=== PATIENT | female | born 1970 | race Caucasian/White ===

== ENCOUNTER → 2019-04-19 | Outpatient (REF) | payer BC ==
[~2019-04-19] MED LIST: CETI10CA2 PO; MOBI15TA PO; MONT10TA2 PO; PLAQ200T4 PO; REST15CA PO; SYNT50TA PO
[2019-04-19 13:19] LABS: HEMATOCRIT 44.3 % (36.0-47.0); HEMOGLOBIN 14.4 g/dl (12.0-15.5); MEAN CORPUSCULAR HGB CONC 32.5 g/dl (32.0-36.5); MEAN CORPUSCULAR VOLUME 89.3 fl (80.0-96.0); PLATELET COUNT, AUTOMATED 333 10^3/uL (150-450); RED BLOOD COUNT 4.96 10^6/uL (4.00-5.40); WHITE BLOOD COUNT 9.4 10^3/uL (4.0-10.0)
[2019-04-19 13:51] LABS: ERYTHROCYTE SEDIMENTATION RATE 12 mm/hr (0-20)
[2019-04-19 14:07] LABS: ALT/SGPT 19 U/L (12-78); BILIRUBIN,TOTAL 0.6 MG/DL (0.2-1.0); BLOOD UREA NITROGEN 12 MG/DL (7-18); CALCIUM LEVEL 9.2 MG/DL (8.5-10.1); CARBON DIOXIDE LEVEL 26 MEQ/L (21-32); CHLORIDE LEVEL 107 MEQ/L (98-107); CHOLESTEROL LEVEL 153 MG/DL (<200); CHOLESTEROL RISK RATIO 3.255 (<5); CREATININE FOR GFR 0.77 MG/DL (0.55-1.30); FOLATE > 24.0 NG/ML; GLOMERULAR FILTRATION RATE > 60.0 (>58); GLUCOSE, FASTING 71 MG/DL (70-100); HDL CHOLESTEROL 47 MG/DL (>40); LDL CHOLESTEROL 93 MG/DL (<100); NON-HDL-C 106 MG/DL; POTASSIUM SERUM 4.2 MEQ/L (3.5-5.1); SODIUM LEVEL 141 MEQ/L (136-145); TOTAL 25(OH) VITAMIN D 53.2 NG/ML (30.0-100.0); TOTAL PROTEIN 7.1 GM/DL (6.4-8.2); TRIGLYCERIDES LEVEL 65 MG/DL (<150); VITAMIN B12 LEVEL 436 PG/ML
== END ==
LOC: M SFHCPLAZ 09:55
PROVIDERS: ATTEND Nurse Practitioner Family
DX: M32.9 Systemic lupus erythematosus, unspecified (principal); E03.9 Hypothyroidism, unspecified; F41.9 Anxiety disorder, unspecified; R20.2 Paresthesia of skin

== ENCOUNTER 2019-04-23 12:22 | Inpatient (IN) | payer BC ==
[~2019-04-23] VITALS: Ht 165.1 cm; Wt 103.4 kg
[2019-04-23 13:14] LABS: BASO # 0.1 10^3/uL (0.0-0.2); BASO % 0.6 % (0.0-1.0); EOS # 0.2 10^3/uL (0.0-0.5); EOS % 1.2 % (0.0-3.0); HEMATOCRIT 45.5 % (36.0-47.0); HEMOGLOBIN 14.6 g/dl (12.0-15.5); LYMPH # 3.4 10^3/uL (1.5-5.0); LYMPH % 26.2 % (24.0-44.0); MEAN CORPUSCULAR HEMOGLOBIN 28.6 pg (27.0-33.0); MEAN CORPUSCULAR HGB CONC 32.1 g/dl (32.0-36.5); MONO # 0.8 10^3/uL (0.0-0.8); NEUTROPHILS # 8.4 10^3/uL (1.5-8.5); NEUTROPHILS % 65.7 % (36.0-66.0); PLATELET COUNT, AUTOMATED 332 10^3/uL (150-450); RED BLOOD COUNT 5.11 10^6/uL (4.00-5.40); WHITE BLOOD COUNT 12.8 10^3/uL (4.0-10.0)
[2019-04-23 13:40] LABS: BLOOD UREA NITROGEN 11 MG/DL (7-18); CALCIUM LEVEL 9.3 MG/DL (8.5-10.1); CARBON DIOXIDE LEVEL 28 MEQ/L (21-32); CHLORIDE LEVEL 108 MEQ/L (98-107); CK-MB VALUE MASS < 1.0 NG/ML (<3.6); CPK CREATINE PHOSPHOKINASE 53 U/L (26-192); CREATININE FOR GFR 0.78 MG/DL (0.55-1.30); FREE T4 0.96 NG/DL (0.76-1.46); GLOMERULAR FILTRATION RATE > 60.0 (>58); GLUCOSE, FASTING 69 MG/DL (70-100); MAGNESIUM LEVEL 2.2 MG/DL (1.8-2.4); MB/CK RELATIVE INDEX 1.89 (< OR =4); PHOSPHORUS LEVEL 3.7 MG/DL (2.5-4.9); POTASSIUM SERUM 3.7 MEQ/L (3.5-5.1); SODIUM LEVEL 142 MEQ/L (136-145); TROPONIN I < 0.02 NG/ML (< 0.10)
[2019-04-23] MEDS ORDERED: REST15CA PO (13:44)
[2019-04-23] MEDS ORDERED: MONT10TA2 PO (13:44)
[2019-04-23] MEDS ORDERED: CETI10CA2 PO (13:44)
[2019-04-23] MEDS ORDERED: PLAQ200T4 PO (13:44)
[2019-04-23] MEDS ORDERED: SYNT50TA PO (13:44)
[2019-04-23] MEDS ORDERED: MOBI15TA PO (13:44)
[2019-04-23] MEDS ORDERED: ISOVUE-370 76% 100ML VIAL (Q9967) As Ordered ONE (14:01)
--- NOTE | 2019-04-23 15:26 | REP ---
CT PULMONARY ANGIOGRAM: WITH IV CONTRAST. HISTORY: Shortness of breath and syncope. COMPARISON STUDIES: No comparison study. CONTRAST DOSE: 100 mL of Isovue [address] TECHNIQUE: Helical scanning is acquired and overlapping 1.5 mm and contiguous 3 mm axial images are reformatted. In addition, maximum intensity projection and multiplanar re-formation images are generated in sagittal and coronal imaging projections. CT PULMONARY ANGIOGRAPHIC FINDINGS: There is good opacification of the pulmonary arterial tree. There is no filling defect or vessel cutoff to suggest pulmonary embolism. Thoracic aorta shows no evidence of aneurysm or dissection. There is no evidence of hilar or mediastinal mass or adenopathy. No pleural or pericardial effusion is seen. There are clips in the gallbladder post cholecystectomy. Normal adrenals are seen. The visualized upper abdominal structures are otherwise unremarkable. There is platelike atelectasis in the left lower lobe laterally. The lung fu are otherwise free of infiltrate or atelectasis. There is a granulomatous calcification in the right upper lobe. There are granulomatous calcified lymph node residuals in the right paratracheal region of the mediastinum. No significant pulmonary nodule is seen. Bone window settings show no bony destructive lesion. IMPRESSION: No CT evidence of pulmonary embolus. No acute abnormality. Old granulomatous calcific residuals. Electronically Signed by Goran Naidu MD 04/23/2019 06:57 P
[2019-04-23 15:48] LABS: HCG, SERUM QUANTITATIVE < 1.0 MIU/ML; LDH LACTATE DEHYDROGENASE 194 U/L (84-246)
[2019-04-23 15:55] VITALS: BP_SYST 134; BP_SYST 137; BP_SYST 140; BP_DIAS 69; BP_DIAS 75; BP_DIAS 76
--- NOTE | 2019-04-23 16:27 | REP ---
CT abdomen and pelvis with IV but without oral contrast: History: Left-sided abdomen pain. Syncope. CT contrast dose: 100 ml of intravenous Isovue 370. No comparison study. CT findings: Preliminary digital saw setter radiograph shows an unremarkable bowel gas pattern. The liver and the spleen are normal in size homogeneous in texture. No adrenal lesion is seen. No abnormalities noted in the pancreas. Gallbladder surgically absent. The kidneys enhance symmetrically and are morphologically intact. No hydronephrosis is seen. No retroperitoneal mass or adenopathy is seen. The appendix is surgically absent. Urinary bladder is unremarkable. The uterus is surgically absent. However, there is a septated large cyst eight L abdominal mass with its epicenter to the left of midline consistent with a left ovarian cystic lesion. The overall dimensions of this large lesion are 17 cm in oblique anteroposterior dimension by 10.6 cm by 11.0 cm. There is a thick-walled septation visible with some nodularity. A nodular component measuring 2.9 x 1.6 cm by 3.1 cm is seen. There is no evidence of ascites or adenopathy. The right ovary is not seen. There is no evidence of right adnexal mass. Impression: Large cystic lesion in the left pelvis with thick-walled nodular septations consistent with an ovarian cystic neoplasm. No ascites or adenopathy is seen. The elbow abdominal cystic mass measures 17 biopsy 11 x 10.6 cm. The patient is status post hysterectomy, appendectomy, and cholecystectomy. Electronically Signed by Goran Naidu MD 04/23/2019 06:57 P
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
[2019-04-23] MEDS ORDERED: TEMAZEPAM 15 MG CAP PO PRN (18:30)
--- NOTE | 2019-04-23 19:56 | ECGEPIP ---
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
[2019-04-23 20:00] VITALS: BP_SYST 119; BP_SYST 121; BP_SYST 122; BP_SYST 142; BP_DIAS 61; BP_DIAS 65; BP_DIAS 66; BP_DIAS 71
[2019-04-23 23:30] LABS: URINE PREG TEST NEGATIVE (NEGATIVE)
[2019-04-23 23:45] LABS: AMPHETAMINES LEVEL URINE NEGATIVE (NEGATIVE); BARBITURATES URINE NEGATIVE (NEGATIVE); BENZODIAZEPINES URINE NEGATIVE (NEGATIVE); CANNABINOIDS URINE NEGATIVE (NEGATIVE); COCAINE METABOLITE URINE NEGATIVE (NEGATIVE); METHADONE URINE NEGATIVE (NEGATIVE); OPIATES URINE NEGATIVE (NEGATIVE); PHENCYCLIDINE URINE NEGATIVE (NEGATIVE)
[2019-04-24] VITALS: BP 131/74
[2019-04-24 04:00] VITALS: BP 144/86
[2019-04-24] MEDS ORDERED: LEVOTHYROXINE 50MCG TABLET (0.05MG) PO SCH (06:00)
[2019-04-24 06:48] LABS: HEMOGLOBIN 13.5 g/dl (12.0-15.5); MEAN CORPUSCULAR HEMOGLOBIN 28.7 pg (27.0-33.0); MEAN CORPUSCULAR HGB CONC 32.1 g/dl (32.0-36.5); MEAN CORPUSCULAR VOLUME 89.2 fl (80.0-96.0); PLATELET COUNT, AUTOMATED 293 10^3/uL (150-450); RED BLOOD COUNT 4.71 10^6/uL (4.00-5.40); WHITE BLOOD COUNT 9.6 10^3/uL (4.0-10.0)
[2019-04-24 07:20] LABS: BLOOD UREA NITROGEN 14 MG/DL (7-18); CARBON DIOXIDE LEVEL 25 MEQ/L (21-32); CHLORIDE LEVEL 108 MEQ/L (98-107); CREATININE FOR GFR 0.72 MG/DL (0.55-1.30); GLOMERULAR FILTRATION RATE > 60.0 (>58); GLUCOSE, FASTING 91 MG/DL (70-100); MAGNESIUM LEVEL 2.1 MG/DL (1.8-2.4); POTASSIUM SERUM 3.6 MEQ/L (3.5-5.1); SODIUM LEVEL 139 MEQ/L (136-145)
[2019-04-24 08:00] VITALS: BP 120/68
--- NOTE | 2019-04-24 08:01 | REP ---
Pelvic sonography: History: Ovarian cyst. Comparison CT study April 23, 2019 showed a large palpable abdominal cystic lesion just to the left of midline. The patient reports previous history of bilateral oophorectomy. Findings: Uterus is surgically absent. No right ovary could be seen. No free fluid is noted. There is a complex large pelvic cystic lesion located just to the left of midline in the pelvis. This measures 19.3 x 10.9 x 14.5 cm in overall dimension sonographically. There is hypoechoic fluid within it. It is a septated with one thickened septation and one thin septation. A daughter cyst is seen along one of the septations. Doppler flow could not be observed. No free cul-de-sac fluid is seen. Impression: 19.3 x 10.9 x 14.5 cm septated complex pelvic mass just to the left of midline. Thick septations. Neoplasm not excluded. Electronically Signed by Goran Naidu MD 04/24/2019 08:52 A
[2019-04-24] MEDS ORDERED: ALPRAZolam 0.25 MG TAB PO ONE ×2 (08:45→12:15)
[2019-04-24] MEDS ORDERED: NS 1,000 ML IV SCH (08:45)
[2019-04-24] MEDS ORDERED: MELOXICAM (MOBIC) 7.5 MG TAB PO SCH (09:00)
[2019-04-24] MEDS ORDERED: MONTELUKAST 10 MG TAB PO SCH (09:00)
[2019-04-24] MEDS ORDERED: HYDROXYCHLOROQUINE 200 MG TAB PO SCH (09:00)
[2019-04-24 12:00] VITALS: BP 114/67
[2019-04-24 12:28] LABS: CA19-9 TUMOR MARKER,CARBOHYDRA < 1.2 U/ML (<35.0)
--- NOTE | 2019-04-24 13:32 | REP ---
INDICATION: Neuro symptoms PROCEDURE: MRI brain without contrast. Axial and sagittal T1 images obtained. T2, FLAIR, diffusion images obtained in axial plane. COMPARISON STUDIES: No prior similar studies FINDINGS: No evidence of restricted diffusion to suggest acute infarction. No gradient-echo susceptibility to suggest hemorrhage. The ventricles and extra-axial CSF spaces are within normal limits. No mass effect or midline shift. No abnormal fluid collections. Paranasal sinuses and mastoid air cells are clear. CONCLUSION: No acute findings. Normal examination. Electronically Signed by Luke Guo MD 04/24/2019 01:23 P
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
[2019-04-24] MEDS ORDERED: PLAQ200T4 PO (14:20)
[2019-04-24] MEDS ORDERED: REST15CA PO (14:20)
[2019-04-24] MEDS ORDERED: CETI10CA2 PO (14:20)
[2019-04-24] MEDS ORDERED: MOBI15TA PO (14:20)
[2019-04-24] MEDS ORDERED: MONT10TA2 PO (14:20)
[2019-04-24] MEDS ORDERED: SYNT50TA PO (14:20)
[2019-04-26 14:21] LABS: ANTI DS-DNA AB Negative (Negative); RNP ANTIBODY < 0.2 AI (0.0-0.9); SMITHS ANTIBODY < 0.2 AI (0.0-0.9)
[2019-04-27 00:08] LABS: HE4 36.7 pmol/L (0.0-63.6)
[2019-04-27 00:08] LABS: HE4 40.9 pmol/L (0.0-63.6)
== END 2019-04-24 16:04 | disposition home or self-care (01) | DRG 204 ==
LOC: M ED 12:22 → M ED INP 15:05 → ENRESERV 15:10 → M PCU 15:55
PROVIDERS: ADMIT General Practice; ATTEND Internal Medicine
DX: R55 Syncope and collapse (principal); M32.10 Systemic lupus erythematosus, organ or system involvement unspecified; E03.9 Hypothyroidism, unspecified; E66.9 Obesity, unspecified; F41.9 Anxiety disorder, unspecified; G47.00 Insomnia, unspecified; I10 Essential (primary) hypertension; Z79.899 Other long term (current) drug therapy; Z88.5 Allergy status to narcotic agent; Z88.8 Allergy status to other drugs, medicaments and biological substances; Z87.891 Personal history of nicotine dependence; N83.8 Other noninflammatory disorders of ovary, fallopian tube and broad ligament; F32.9 Major depressive disorder, single episode, unspecified

== ENCOUNTER → 2019-05-04 | Outpatient (CLI) | payer BC ==
[~2019-05-04] MED LIST changes: +BIOT1CAP2 PO; +ONDA4TAB6 PO; +PERC5TAB12 PO
--- NOTE | 2019-05-05 08:23 | ECHO ---
DATE OF PROCEDURE: 05/04/2019 Date of : 1970 Age: 48 REFERRING PHYSICIAN: Diamond Ortiz NP PATIENT LOCATION: Outpatient. REASON FOR EXAMINATION: Syncope/prolapse. 2D MEASUREMENTS: IVS: 1.0 cm LV: 3.7 cm LVPW: 1.1 cm LA: 3.5 cm Aorta: 2.6 cm RV: 2.9 cm DOPPLER MEASUREMENTS: Peak velocity across the aortic valve: 1.4 m/s Peak velocity across the LVOT: 0.84 m/s Mitral E: 0.74, Mitral A: 0.51 with a ratio of 1.4 2D COMMENTS: 1. Normal left ventricular size, wall thickness and normal global left ventricular systolic function. The estimated left ventricular systolic ejection fraction is 60-65%. 2. Normal left atrium. Normal right atrium and right ventricle. 3. The atrial septum appeared to be normal without evidence of defect or shunt. 4. Normal aortic root. 5. Trace to small pericardial effusion noted, no evidence of cardiac tamponade. 6. The mitral valve, aortic valve, tricuspid valve, and pulmonic valve appeared to be normal. The proximal pulmonary artery branches also appeared to be normal. 7. The inferior vena cava was not well visualized. DOPPLER: Doppler detects trace mitral regurgitation, trace tricuspid regurgitation. Pulmonary artery systolic pressure is most likely normal. Assessment of the left ventricular diastolic function appeared to be normal. IMPRESSION 1. Normal global left ventricular systolic and diastolic function. 2. Trace mitral regurgitation. 3. Trace tricuspid regurgitation with probably normal pulmonary artery systolic pressure. 4. Trace to small pericardial effusion, no evidence of cardiac tamponade.
== END ==
LOC: M CARPUL 14:43
PROVIDERS: ATTEND Nurse Practitioner Family
DX: I34.0 Nonrheumatic mitral (valve) insufficiency (principal); R55 Syncope and collapse

== ENCOUNTER 2019-05-08 07:58 | Emergency (ER) | payer BC ==
[~2019-05-08] VITALS: Ht 162.6 cm; Wt 102.9 kg
[~2019-05-08 07:58] MED LIST changes: -BIOT1CAP2 PO; -ONDA4TAB6 PO; -PERC5TAB12 PO
[2019-05-08] MEDS ORDERED: BIOT1CAP2 PO (08:05)
[2019-05-08] MEDS ORDERED: ONDANSETRON 4MG/2ML VIAL (J2405) IV ONE ×2 (09:00→12:30)
[2019-05-08] MEDS ORDERED: NS 1,000 ML IV ONE (09:00)
[2019-05-08 09:30] LABS: BASO # 0.1 10^3/uL (0.0-0.2); EOS # 0.1 10^3/uL (0.0-0.5); EOS % 1.1 % (0.0-3.0); HEMATOCRIT 47.2 % (36.0-47.0); HEMOGLOBIN 14.9 g/dl (12.0-15.5); LYMPH # 2.3 10^3/uL (1.5-5.0); LYMPH % 32.6 % (24.0-44.0); MEAN CORPUSCULAR HEMOGLOBIN 28.2 pg (27.0-33.0); MEAN CORPUSCULAR HGB CONC 31.6 g/dl (32.0-36.5); MEAN CORPUSCULAR VOLUME 89.2 fl (80.0-96.0); MONO # 0.5 10^3/uL (0.0-0.8); MONO % 6.9 % (0.0-5.0); NEUTROPHILS # 4.2 10^3/uL (1.5-8.5); NEUTROPHILS % 58.1 % (36.0-66.0); PLATELET COUNT, AUTOMATED 382 10^3/uL (150-450); RED BLOOD COUNT 5.29 10^6/uL (4.00-5.40); WHITE BLOOD COUNT 7.1 10^3/uL (4.0-10.0)
[2019-05-08 09:45] LABS: ALBUMIN 4.2 GM/DL (3.2-5.2); ALT/SGPT 22 U/L (12-78); BILIRUBIN,DIRECT < 0.1 MG/DL (0.0-0.2); BILIRUBIN,TOTAL 0.4 MG/DL (0.2-1.0); LIPASE 136 U/L (73-393); TOTAL PROTEIN 7.9 GM/DL (6.4-8.2)
[2019-05-08] MEDS ORDERED: KETOROLAC 30 MG/ML VIAL (J1885) IV ONE (10:00)
--- NOTE | 2019-05-08 10:18 | REP ---
Pelvic ultrasound for known pelvic mass with increased pain: Comparisons are the abdomen/pelvis CT dated 04/23/2019 and pelvic ultrasound dated 04/23/2019. On the comparison ultrasound. The patient indicates that she had a hysterectomy in 2001 and a bilateral nephrectomy in 2010. Both prior studies there was a large pelvic cyst containing a thick septation and daughter cyst along the septation. On the previous ultrasound the cyst measured 19.3 x 14.5 x 10.9 cm. On the study today this large pelvic cyst is again identified, containing a thick septation. With Doppler assessment there is vascular flow within this septation, the resistive index measuring 0.57. A daughter cyst is again identified along the septation. The cyst today measures 17.5 x 13.7 x 9.4 cm. There is no free fluid in the pelvis. There is no identifiable uterus. There is no identifiable right or left ovary. No free fluid is identified in the pelvis. Impression: There is a large pelvic cyst containing a thickened septation. A daughter cyst is again identified within the septation. With Doppler assessment there is vascular flow within this septation. The findings are consistent with cystic neoplasm. The cyst has not significantly changed in size. Electronically Signed by You Elizabeth MD 05/08/2019 10:11 A
[2019-05-08] MEDS ORDERED: PERCOCET 5MG/325MG TAB PO ONE (10:45)
[2019-05-08] MEDS ORDERED: ONDA4TAB6 PO (12:20)
[2019-05-08] MEDS ORDERED: PERC5TAB12 PO (12:20)
[2019-05-08 12:40] VITALS: BP 124/64
--- NOTE | 2019-05-08 20:15 | ED PDOC ---
Post-Departure Follow-Up carole barnett and dr billings faxed formal report of pelvic us for fu Zhanna Monzon MD May 08, 2019 20:15
== END 2019-05-08 13:04 | disposition home or self-care (01) ==
LOC: M ED 07:58
DX: N94.89 Other specified conditions associated with female genital organs and menstrual cycle (principal); M32.9 Systemic lupus erythematosus, unspecified; E03.9 Hypothyroidism, unspecified; R06.02 Shortness of breath; K59.00 Constipation, unspecified; F17.290 Nicotine dependence, other tobacco product, uncomplicated; Z88.1 Allergy status to other antibiotic agents; Z88.5 Allergy status to narcotic agent; Z88.6 Allergy status to analgesic agent; Z79.890 Hormone replacement therapy; Z79.899 Other long term (current) drug therapy
CPT/HCPCS: 76856; 80047; 80076; 81001; 83690; 85025; 96361; 96374; 96375; 96376; 99284; J1885; J2405

== ENCOUNTER 2019-05-18 06:01 | Inpatient (IN) | payer BC ==
[~2019-05-18] VITALS: Ht 162.6 cm; Wt 103.8 kg
[2019-05-18] VITALS (7 sets, daily range): BP systolic 100–118; BP diastolic 53–64
[~2019-05-18 06:01] MED LIST changes: +BIOT1CAP2 PO; -MONT10TA2 PO; +MONT10TA4 PO; +ONDA4TAB6 PO; +PERC5TAB12 PO
[2019-05-18 06:36] LABS: HEMATOCRIT 45.3 % (36.0-47.0); HEMOGLOBIN 14.3 g/dl (12.0-15.5); MEAN CORPUSCULAR HEMOGLOBIN 28.3 pg (27.0-33.0); MEAN CORPUSCULAR HGB CONC 31.6 g/dl (32.0-36.5); MEAN CORPUSCULAR VOLUME 89.7 fl (80.0-96.0); PLATELET COUNT, AUTOMATED 345 10^3/uL (150-450); RED BLOOD COUNT 5.05 10^6/uL (4.00-5.40)
[2019-05-18] MEDS ORDERED: ceFAZolin SOD 2 GM in IV 1 EA IV ONE (07:00)
[2019-05-18] MEDS ORDERED: LR 1,000 ML IV ONE (07:00)
[2019-05-18 07:02] LABS: BLOOD UREA NITROGEN 12 MG/DL (7-18); CALCIUM LEVEL 9.6 MG/DL (8.5-10.1); CARBON DIOXIDE LEVEL 26 MEQ/L (21-32); CHLORIDE LEVEL 108 MEQ/L (98-107); CREATININE FOR GFR 0.84 MG/DL (0.55-1.30); GLOMERULAR FILTRATION RATE > 60.0 (>58); GLUCOSE, FASTING 103 MG/DL (70-100); POTASSIUM SERUM 3.5 MEQ/L (3.5-5.1); SODIUM LEVEL 140 MEQ/L (136-145)
[2019-05-18] MEDS ORDERED: SCOPOLAMINE 1MG TRANSDERMAL PATCH As Ordered ONE (07:09)
[2019-05-18] MEDS ORDERED: SILVER NITRATE APPLICATOR As Ordered ONE (07:10)
[2019-05-18] MEDS ORDERED: METHYLENE BLUE 0.5% (5MG/ML) 10 ML AMP (PROVAYBLUE)(Q9968 PER 1MG) As Ordered ONE (07:11)
[2019-05-18] MEDS ORDERED: SCOPOLAMINE 1MG TRANSDERMAL PATCH TOP ONE (07:30)
[2019-05-18] MEDS ORDERED: LIDOCAINE 2% INJ 100 MG/5 ML SDV (FOR ANES.) As Ordered ONE (08:05)
[2019-05-18] MEDS ORDERED: propofoL 200 MG/20 ML VIAL As Ordered ONE (08:05)
[2019-05-18] MEDS ORDERED: MIDAZOLAM INJ 2 MG/2 ML VIAL (J2250) As Ordered ONE (08:05)
[2019-05-18] MEDS ORDERED: HYDROmorphone HCL 2 MG/ML 1ML VIAL (J1170) As Ordered ONE (08:05)
[2019-05-18] MEDS ORDERED: dexameTHASONE 4 MG/ML 1ML VIAL (J1100) As Ordered ONE (08:05)
[2019-05-18] MEDS ORDERED: fentaNYL 100 MCG/2 ML INJECTION (J3010) As Ordered ONE (08:05)
[2019-05-18] MEDS ORDERED: ROCURONIUM BROMIDE 50 MG/5 ML VIAL As Ordered ONE (08:05)
[2019-05-18] MEDS ORDERED: BUPIVACAINE LIPOSOME/PF 1.3% 20ML VIAL (13.3MG/ML)(EXPAREL)(C9290 PER1MG) As Ordered ONE (08:21)
[2019-05-18] MEDS ORDERED: SUGAMMADEX SODIUM 500 MG/5 ML VIAL (BRIDION) As Ordered ONE (08:26)
[2019-05-18] MEDS ORDERED: ONDANSETRON 4MG/2ML VIAL (J2405) As Ordered ONE (08:26)
[2019-05-18] MEDS ORDERED: KETOROLAC 60 MG/2 ML VIAL (J1885) As Ordered ONE (08:26)
[2019-05-18] MEDS ORDERED: ePHEDrine SULFATE 25 MG/5 ML(5MG/ML) SYRINGE As Ordered ONE (08:58)
[2019-05-18] MEDS: LR 1,000 ML IV SCH ×2 (11:00→18:13)
[2019-05-18] MEDS ORDERED: ONDANSETRON 4 MG ORAL DISINTEGRATING TAB (Q0162 PER 1MG) PO PRN (11:00)
[2019-05-18] MEDS ORDERED: HYDROmorphone 2 MG TAB PO PRN (11:00)
[2019-05-18] MEDS ORDERED: TEMAZEPAM 15 MG CAP PO PRN (11:00)
[2019-05-18] MEDS ORDERED: PERCOCET 5MG/325MG TAB PO PRN ×2 (11:00→11:15)
[2019-05-18] MEDS ORDERED: ONDANSETRON 4MG/2ML VIAL (J2405) IV PRN (11:15)
[2019-05-18] MEDS ORDERED: LR 1,000 ML IV SCH (11:15)
[2019-05-18] MEDS ORDERED: fentaNYL 100 MCG/2 ML INJECTION (J3010) IV PRN (11:15)
[2019-05-18] MEDS: ONDANSETRON 4 MG ORAL DISINTEGRATING TAB (Q0162 PER 1MG) PO PRN ×2 (13:16→18:58)
[2019-05-18] MEDS: PERCOCET 5MG/325MG TAB PO PRN ×2 (13:17→18:59)
[2019-05-18] MEDS ORDERED: HYDROMORPHONE HCL 0.5 MG/ 0.5 ML SYRINGE (J1170 PER 1) IV PRN (13:45)
[2019-05-18] MEDS: KETOROLAC 30 MG/ML VIAL (J1885) IV SCH ×2 (15:05→21:59)
[2019-05-18] MEDS: DOCUSATE SODIUM 100 MG CAP PO SCH (21:58)
[2019-05-18] MEDS: ENOXAPARIN 40 MG/0.4 ML SYRINGE (J1650) SC SCH (21:59)
[2019-05-19] VITALS (7 sets, daily range): BP systolic 90–120; BP diastolic 50–80
[2019-05-19] MEDS: LR 1,000 ML IV SCH ×3 (02:19→17:53)
[2019-05-19] MEDS: PERCOCET 5MG/325MG TAB PO PRN ×4 (02:19→21:20)
[2019-05-19] MEDS: ONDANSETRON 4 MG ORAL DISINTEGRATING TAB (Q0162 PER 1MG) PO PRN ×4 (02:21→21:19)
[2019-05-19] MEDS: KETOROLAC 30 MG/ML VIAL (J1885) IV SCH ×2 (03:00→08:36)
[2019-05-19] MEDS: LEVOTHYROXINE 50MCG TABLET (0.05MG) PO SCH (05:53)
[2019-05-19 07:18] LABS: BASO % 0.1 % (0.0-1.0); EOS % 0.1 % (0.0-3.0); HEMATOCRIT 36.2 % (36.0-47.0); LYMPH % 11.4 % (24.0-44.0); MEAN CORPUSCULAR HEMOGLOBIN 28.5 pg (27.0-33.0); MEAN CORPUSCULAR HGB CONC 31.2 g/dl (32.0-36.5); MEAN CORPUSCULAR VOLUME 91.4 fl (80.0-96.0); MONO # 1.9 10^3/uL (0.0-0.8); MONO % 10.5 % (0.0-5.0); NEUTROPHILS # 13.8 10^3/uL (1.5-8.5); NEUTROPHILS % 77.2 % (36.0-66.0); PLATELET COUNT, AUTOMATED 288 10^3/uL (150-450); RED BLOOD COUNT 3.96 10^6/uL (4.00-5.40); WHITE BLOOD COUNT 17.8 10^3/uL (4.0-10.0)
[2019-05-19 07:31] LABS: HEMOGLOBIN 11.3 g/dl (12.0-15.5)
[2019-05-19] MEDS: HYDROXYCHLOROQUINE 200 MG TAB PO SCH (08:36)
[2019-05-19] MEDS: DOCUSATE SODIUM 100 MG CAP PO SCH ×2 (08:36→21:19)
[2019-05-19] MEDS: MONTELUKAST 10 MG TAB PO SCH (08:36)
[2019-05-19] MEDS: IBUPROFEN 800 MG TAB PO SCH (17:50)
[2019-05-19] MEDS: ENOXAPARIN 40 MG/0.4 ML SYRINGE (J1650) SC SCH (21:19)
[2019-05-19] MEDS: MIRALAX *UNIT DOSE* 17GM PACKET PO PRN (21:55)
[2019-05-19] MEDS: SIMETHICONE 80 MG CHEW TAB PO PRN (21:55)
[2019-05-20] MEDS: IBUPROFEN 800 MG TAB PO SCH ×3 (02:09→17:28)
[2019-05-20] MEDS: PERCOCET 5MG/325MG TAB PO PRN ×4 (02:09→20:32)
[2019-05-20] MEDS: ONDANSETRON 4 MG ORAL DISINTEGRATING TAB (Q0162 PER 1MG) PO PRN ×4 (02:09→20:31)
[2019-05-20] MEDS: LEVOTHYROXINE 50MCG TABLET (0.05MG) PO SCH (05:49)
[2019-05-20 06:00] VITALS: BP 120/62
[2019-05-20] MEDS: SIMETHICONE 80 MG CHEW TAB PO PRN ×2 (08:45→20:31)
[2019-05-20] MEDS: DOCUSATE SODIUM 100 MG CAP PO SCH ×2 (08:46→20:31)
[2019-05-20] MEDS: HYDROXYCHLOROQUINE 200 MG TAB PO SCH (08:47)
[2019-05-20] MEDS: MONTELUKAST 10 MG TAB PO SCH (08:47)
[2019-05-20 14:00] VITALS: BP 119/62
[2019-05-20] MEDS: MOM 30ML SUSPENSION UDC PO PRN (17:27)
[2019-05-20] MEDS: MIRALAX *UNIT DOSE* 17GM PACKET PO PRN (20:31)
[2019-05-20] MEDS: ENOXAPARIN 40 MG/0.4 ML SYRINGE (J1650) SC SCH (20:31)
[2019-05-20 22:00] VITALS: BP 114/59
[2019-05-21] MEDS: IBUPROFEN 800 MG TAB PO SCH ×3 (01:37→18:04)
[2019-05-21] MEDS: LEVOTHYROXINE 50MCG TABLET (0.05MG) PO SCH (05:05)
[2019-05-21] MEDS: MOM 30ML SUSPENSION UDC PO PRN ×2 (05:05→20:50)
[2019-05-21] MEDS: ONDANSETRON 4 MG ORAL DISINTEGRATING TAB (Q0162 PER 1MG) PO PRN ×3 (05:05→18:04)
[2019-05-21] MEDS: SIMETHICONE 80 MG CHEW TAB PO PRN ×2 (05:05→20:50)
[2019-05-21] MEDS: PERCOCET 5MG/325MG TAB PO PRN ×3 (05:06→18:04)
[2019-05-21 06:00] VITALS: BP 105/52
[2019-05-21] MEDS: DOCUSATE SODIUM 100 MG CAP PO SCH ×2 (09:32→20:50)
[2019-05-21] MEDS: HYDROXYCHLOROQUINE 200 MG TAB PO SCH (09:32)
[2019-05-21] MEDS: MONTELUKAST 10 MG TAB PO SCH (09:32)
[2019-05-21 14:00] VITALS: BP 116/58
[2019-05-21] MEDS: ENOXAPARIN 40 MG/0.4 ML SYRINGE (J1650) SC SCH (20:50)
[2019-05-21 22:00] VITALS: BP 105/53
[2019-05-22] MEDS: IBUPROFEN 800 MG TAB PO SCH ×2 (00:26→09:44)
[2019-05-22] MEDS: ONDANSETRON 4 MG ORAL DISINTEGRATING TAB (Q0162 PER 1MG) PO PRN ×3 (00:26→13:01)
[2019-05-22] MEDS: PERCOCET 5MG/325MG TAB PO PRN ×2 (00:27→12:56)
[2019-05-22] MEDS: LEVOTHYROXINE 50MCG TABLET (0.05MG) PO SCH (05:45)
[2019-05-22 06:00] VITALS: BP 105/65
[2019-05-22] MEDS: DOCUSATE SODIUM 100 MG CAP PO SCH (09:00)
[2019-05-22] MEDS: HYDROXYCHLOROQUINE 200 MG TAB PO SCH (09:44)
[2019-05-22] MEDS: MONTELUKAST 10 MG TAB PO SCH (09:44)
[2019-05-22] MEDS ORDERED: PERCOCET PO (10:06)
[2019-05-22] MEDS ORDERED: DOCU100C16 PO (10:06)
[2019-05-22] MEDS ORDERED: IBUP80TA PO (10:08)
[2019-05-22] MEDS ORDERED: ONDA4TAB6 PO (10:08)
== END 2019-05-22 15:42 | disposition home or self-care (01) | DRG 513 ==
LOC: M SDC 06:01 → M MS5PR 12:15 → M SDC 05-20 13:51 → M MS5PR 05-20 13:52
PROVIDERS: ADMIT Obstetrics & Gynecology; ATTEND Obstetrics & Gynecology
PROC: 0UT10ZZ Resection of Left Ovary, Open Approach (ICD-10-PCS; principal; 2019-05-18 07:30)
PROC: 0DNW0ZZ Release Peritoneum, Open Approach (ICD-10-PCS; 2019-05-18 07:30)
DX: N83.12 Corpus luteum cyst of left ovary (principal); N73.6 Female pelvic peritoneal adhesions (postinfective)

== ENCOUNTER → 2019-07-11 | Outpatient (CLI) | payer BC ==
[~2019-07-11] MED LIST changes: +DOCU100C16 PO; +IBUP80TA PO; +PERCOCET PO; +SCOP1PAT2 TOP
== END ==
LOC: M LABSMTC 10:52
PROVIDERS: ATTEND Family Medicine
DX: Z11.59 Encounter for screening for other viral diseases (principal); Z20.828 Contact with and (suspected) exposure to other viral communicable diseases